=== PATIENT | male | born 1985 | race American Indian/Alaskan Native ===

== ENCOUNTER 2021-02-12 13:25 | Outpatient (CLI) | payer OTHER ==
[2021-02-12 14:24] LABS: Blood Urea Nitrogen 14 mg/dL (9-20)
--- NOTE | 2021-02-12 16:44 | Cat Scan Report ---
CT ABDOMEN AND PELVIS WITH CONTRAST HISTORY: VOMITING, ABD PAIN OMNI 300 100ML. COMPARISON: None. TECHNIQUE: CT images of the abdomen and pelvis were obtained following administration of intravenous contrast. All CT scans at this location are performed using CT dose reduction for ALARA by means of automated exposure control. CONTRAST: 100 ml of intravenous contrast administered. FINDINGS: Lungs/bones: Lung bases are clear. Mild lower lumbar degenerative changes are present. No acute osse ous abnormality. Abdomen/pelvis: There is mild hepatic steatosis. The liver is otherwise unremarkable the gallbladder , spleen, pancreas, adrenals, kidneys, and proximal GI tract appear unremarkable. Urinary bladder and prostate are normal with no pelvic free fluid. Occasional colonic diverticula are present with no acute inflammatory change identified. The appendix and terminal ileum appear normal. IMPRESSION: 1. No acute abnormality identified. Signer Name: David Hernandez MD Signed: 02/12/2021 4:40 PM Workstation Name: [id number]
== END 2021-02-12 13:26 | disposition home or self-care (01) ==
LOC: CT 13:25
PROVIDERS: ATTEND Internal Medicine
DX: K76.0 Fatty (change of) liver, not elsewhere classified (principal); M47.816 Spondylosis without myelopathy or radiculopathy, lumbar region; R11.10 Vomiting, unspecified
CPT/HCPCS: 36415; 74177; 82565; 84520; Q9967